=== PATIENT | female | born 1995 | race Caucasian/White ===

== ENCOUNTER 2020-06-19 14:56 | Outpatient (RCR) | payer OTHER | END 2020-06-20 | LOC: WCC 14:56 | PROVIDERS: ATTEND Family Medicine Adult Medicine | DX: L89.154 Pressure ulcer of sacral region, stage 4 (principal); L89.92 Pressure ulcer of unspecified site, stage 2; N31.9 Neuromuscular dysfunction of bladder, unspecified; M41.9 Scoliosis, unspecified; Q05.9 Spina bifida, unspecified; R32 Unspecified urinary incontinence; Z74.01 Bed confinement status | CPT/HCPCS: 87071; 87075; 87186; 87205 ==

== ENCOUNTER 2020-06-30 13:24 | Outpatient (RCR) | payer OTHER ==
[2020-06-30] MEDS ORDERED: LIDOCAINE VISC 2% SOLN 15 ML UDC ONE (13:35)
== END 2020-07-21 ==
LOC: WCC 13:24
PROVIDERS: ATTEND Family Medicine
DX: L89.154 Pressure ulcer of sacral region, stage 4 (principal); L89.894 Pressure ulcer of other site, stage 4; M41.9 Scoliosis, unspecified; N31.9 Neuromuscular dysfunction of bladder, unspecified; R32 Unspecified urinary incontinence; B96.89 Other specified bacterial agents as the cause of diseases classified elsewhere; Q05.9 Spina bifida, unspecified; Z74.01 Bed confinement status
CPT/HCPCS: 87071; 87075; 87205